=== PATIENT | female | born 1960 | race Caucasian/White ===

== ENCOUNTER 2018-06-28 16:08 | Emergency (ER) | payer OTHER ==
[~2018-06-28] VITALS: Ht 167.6 cm; Wt 59.3 kg
[2018-06-28 16:12] VITALS: BP 147/73; PULSE 109; RESP 20; Ht 167.6 cm; Wt 59.3 kg
--- NOTE | 2018-06-28 16:30 | ERD ---
ER Documentation Chief Complaint Chief Complaint Complains of a severe headache x 3 days HPI 58-year-old female, with history of migraines, presents the emergency department, complaining of 3 days with persistent headache, described as dull, 5/10, band like radiated on the left parietal area; associated with nausea. The patient denies distal weakness, numbness or tingling. She does not report history of fever or chills, no blurred vision, no rashes. ROS All systems reviewed and are negative except as per history of present illness. Medications Home Meds Active Scripts Ondansetron Hcl* (Zofran*) 4 Mg Tablet, 4 MG PO Q8H PRN for NAUSEA AND/OR VOMITING, #12 TAB Prov:SALVATORE KELLER MD 06/28/18 Hawpyjomwi-Eluroomsfcrea-Sjetrgts* (Fioricet*) 50-300-40 Mg Capsule, 1 CAP PO BID PRN for HEADACHE, #14 CAP Prov:SALVATORE KELLER MD 06/28/18 Allergies Allergies: Coded Allergies: No Known Allergy (Unverified , 06/28/18) PMhx/Soc The patient reports history of migraines, diabetes and hypertension Hx Substance Use: No Hx Tobacco Use: Yes FmHx Family History: diabetes; No coronary disease Physical Exam Vitals Vital Signs Date Temp Pulse Resp B/P (MAP) Pulse Ox O2 O2 Flow FiO2 Time Delivery Rate 06/28/18 98.3 109 20 147/73 99 16:12 (97) Physical Exam Const: No acute distress Head: Atraumatic Eyes: Normal Conjunctiva ENT: Normal External Ears, Nose and Mouth. Neck: Full range of motion. No meningismus. Resp: Clear to auscultation bilaterally Cardio: Regular rate and rhythm, no murmurs Abd: Soft, non tender, non distended. Normal bowel sounds Skin: No petechiae or rashes Back: No midline or flank tenderness Ext: No cyanosis, or edema Neur: Awake and alert Psych: Normal Mood and Affect Results 24 hrs Current Medications Medications Dose Sig/Tash Start Time Status Last (Trade) Ordered Route PRN Stop Time Admin Dose Reason Admin Morphine 10 mg ONCE ONCE 06/28/18 DC 06/28/18 Sulfate PO 17:00 17:03 (morphine) 06/28/18 17:01 Ondansetron 4 mg ONCE STAT 06/28/18 DC 06/28/18 HCl (Zofran ODT 16:48 17:03 Odt) 06/28/18 16:51 Procedures/MDM Vital signs stable, Physical exam unremarkable, neurovascular exam intact. Differential diagnosis include but not limited to: Classical migraine, sinusi tis, visual corrective problems, side effects of medications, dehydration, electrolyte imbalance, endocrine/autoimmune medical condition, stress, anxiety, tension headache. Low suspicion for meningitis, NEON MOLDER tumor, cerebrovascular event. Physical examination and clinical presentation consistent most likely with migraine headache. During the ED course the patient remained stable, no new complaints. The patient received treatment with Morphine PO presenting overall improvement of the symptoms. Results and clinical impression discussed with patient who agrees with management. The patient is stable to be treated outpatient and will be d ischarged home, some side effects of prescribed medications (headache, rash, nausea, vomiting, diarrhea, drowsiness, habituation, bleeding, hypertension, interactions with other medications) were reviewed. Follow up with the primary care provider in the next 48h has been recommended. If symptoms persist, worsen or new symptoms develop, then patient should return to the ED immediately. Instructions explained and given directly by me to the patient with acknowledgment and demonstrated understanding. Disclaimer: Inadvertent spelling and grammatical errors are likely due to EHR/dictation software use and do not reflect on the overall quality of patient care. Also, please note that the electronic time recorded on this note does not necessarily reflect the actual time of the patient encounter. Departure Diagnosis: Primary Impression: Migraine headache Condition: Stable Additional Instructions: Thank you very much for allowing us to participate in your care. Your health and safety is our top priority at [facility]. The evaluation in the emergency department has been done to rule out an acute emergency, chronic conditions like malignancy or other diseases have not been evaluated; therefore, you need to follow up with a primary care provider in the next 48h. If symptoms persist, worsen or new symptoms develop, then patient should return to the ED immediately. Call your primary care doctor TOMORROW for an appointment during the next 2-4 days and bring all the information provided. Have prescriptions filled and follow precisely the directions on the label. If the symptoms get worse and your provider is unavailable, return to the Emergency Department immediately. SALVATORE KELLER MD June 28, 2018 16:30
[2018-06-28] MEDS ORDERED: ONDANSETRON (ODT) 4 MG TAB ODT STA (16:48)
[2018-06-28] MEDS ORDERED: BUTA1CAP38 PO (16:56)
[2018-06-28] MEDS ORDERED: ONDA4TAB8 PO (16:56)
[2018-06-28] MEDS ORDERED: morphine LIQ (10 MG/5 ML) CUP PO ONE (17:00)
== END 2018-06-28 17:20 | disposition home or self-care (01) ==
LOC: FTE 16:08
DX: G43.909 Migraine, unspecified, not intractable, without status migrainosus (principal); E11.9 Type 2 diabetes mellitus without complications; I10 Essential (primary) hypertension; Z87.891 Personal history of nicotine dependence
CPT/HCPCS: Z7502; Z7610; 99283